=== PATIENT | female | born 1995 | race Caucasian/White ===

== ENCOUNTER 2020-08-30 08:50 | Outpatient (CLI) | payer OTHER | END 2020-08-30 23:59 | disposition home or self-care (01) | LOC: CARD 08:50 | PROVIDERS: ATTEND Physician Assistant Medical | DX: Z02.9 Encounter for administrative examinations, unspecified (principal) ==

== ENCOUNTER → 2020-10-18 | Outpatient (CLI) | payer OTHER | END | disposition home or self-care (01) | LOC: CVU 07:45 | PROVIDERS: ATTEND Physician Assistant Medical | DX: R94.31 Abnormal electrocardiogram [ECG] [EKG] (principal); I49.9 Cardiac arrhythmia, unspecified | CPT/HCPCS: 93306; 93356 ==

== ENCOUNTER 2020-11-18 17:49 | Emergency (ER) | payer OTHER ==
[~2020-11-18] VITALS: Ht 177.8 cm; Wt 98.2 kg
--- NOTE | 2020-11-18 18:18 | NUR ---
PT TO ROOM 37 W/ C/O PALPITATIONS AND CP FOR A FEW MIN EACH TIME INTERMITTENTLY THROUGHOUT THE LAST FEW WEEKS. 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 MOFFETT. HER FIRST APPT IS ON 12/01/20. PT STATES HER HR HAS GOTTEN LOW 40 AND THEN WILL JUMP UP TO 170-190 W/O ACTIVITY. PT ALSO STATES SHE HAD A SYNCOPAL EPISODE A FEW WEEKS AGO IN THE SHOWER. WAS NOT SEEN AT THAT TIME. PT STATES SHE HAD A ECHO DONE RECENTLY AND FOUND TO [facility] AND WAS TOLD TO TAKE A BABY ASA. EVERYTHING ELSE ON ECHO WNL. PT RESTING ON GURNEY. NADN. MONITORS APPLIED. VSS. WARM BLANKET PROVIDED. CALL LIGHT IN REACH.
--- NOTE | 2020-11-18 19:04 | NUR ---
PT RESTING ON GURARMANDO. RISHABHN. VSS. ORTHOS COMPLETE. PT DENIED FEELING DIZZY/LIGHTHEADED THROUGH THE MOVEMENTS.
[2020-11-18 19:29] LABS: BASOPHILS % (AUTO) 1 % (0-1); EOSINOPHILS % (AUTO) 4 % (1-7); LYMPHOCYTES % (AUTO) 27 % (22-44); MEAN CORPUSCULAR HEMOGLOBIN 29.9 pg (27.0-34.8); MEAN CORPUSCULAR HGB CONC 34.2 g/dL (32.4-35.8); MEAN PLATELET VOLUME 7.2 fL (7.4-10.4); MONOCYTES % (AUTO) 7 % (2-9); NEUTROPHILS % (AUTO) 62 % (42-75); PLATELET COUNT 330 x10^3/uL (130-400); RED BLOOD COUNT 4.78 x10^6/uL (3.82-5.3); RED CELL DISTRIBUTION WIDTH 12.5 % (9.6-15.2)
[2020-11-18 19:42] LABS: ALANINE AMINOTRANSFERASE 26 U/L (12-78); ALBUMIN 3.2 g/dL (3.4-5.0); ANION GAP 4 mmol/L (5-15); CALCIUM 9.4 mg/dL (8.5-10.1); CHLORIDE 106 mmol/L (98-107); CREATININE 0.79 mg/dL (0.55-1.02)
[2020-11-18 19:52] LABS: ALKALINE PHOSPHATASE 60 U/L (45-117); BILIRUBIN,TOTAL 0.4 mg/dL (0.2-1.0); TOTAL PROTEIN 8.2 g/dL (6.4-8.2); TROPONIN I < 0.015 ng/mL (0.000-0.045)
[2020-11-18 20:00] VITALS: BP 123/61
--- NOTE | 2020-11-18 20:01 | NUR ---
PT RESTING ON GURNEY. NADN. JAIN.
== END 2020-11-18 20:44 | disposition home or self-care (01) ==
LOC: ED 20:35
DX: R00.2 Palpitations (principal); R00.0 Tachycardia, unspecified; I44.7 Left bundle-branch block, unspecified
CPT/HCPCS: 36415; 80053; 82533; 82962; 83735; 84436; 84443; 84484; 84703; 85025; 93005; 99284